=== PATIENT | female | born 1995 | race Caucasian/White ===

== ENCOUNTER 2017-11-27 10:18 | Emergency (ER) | payer BC ==
[~2017-11-27] VITALS: Ht 165.1 cm; Wt 58.1 kg
[2017-11-27] MEDS ORDERED: IBUPROFEN 600 MG TABLET ONE (10:39)
--- NOTE | 2017-11-27 10:42 | NUR ---
ice pack to rt rib cage and motrin given
[2017-11-27] MEDS ORDERED: IBUPROFEN 600 MG TABLET PO ONE (10:45)
[2017-11-27 10:46] VITALS: BP 144/66
--- NOTE | 2017-11-27 10:46 | NUR ---
Patient discharged to home in stable conditon. Written and verbal after care instructions given. Patient verbalizes understanding of instructions.
== END 2017-11-27 10:47 | disposition home or self-care (01) ==
LOC: ER 10:18
DX: S09.90XA Unspecified injury of head, initial encounter (principal); S39.92XA Unspecified injury of lower back, initial encounter; V49.60XA Unspecified car occupant injured in collision with unspecified motor vehicles in traffic accident, initial encounter; Y93.89 Activity, other specified; Y92.410 Unspecified street and highway as the place of occurrence of the external cause; Y99.8 Other external cause status
CPT/HCPCS: A4663